=== PATIENT | male | born 1950 | race Caucasian/White ===

== ENCOUNTER 2019-11-04 05:36 | Inpatient (IN) ==
[2019-11-04] MEDS ORDERED: IOPAMIDOL 100 ML BOTTLE IV ONE (05:37)
[2019-11-04] MEDS ORDERED: IPRATROPIUM/ALBUTEROL 3 ML AMPUL.NEB NEB ONE (05:53)
--- NOTE | 2019-11-04 06:37 | Emergency Department Note ---
SOB HPI - General Chief Complaint: Shortness of Breath/Dyspnea Stated Complaint: cont resp infection 2 mo Time Seen by Provider: 11/04/19 06:26 Source: patient Mode of arrival: ambulatory Limitations: no limitations - History of Present Illness This patient has had shortness of breath for last several weeks and has taken 2 courses of an antibiotic for possible pneumonia. He does have a history of pulmonary fibrosis and coronary artery disease. He has had no chest pain. We gave him a breathing treatment before I saw him in the emergency room he said that made him feel little better. He did cough up some phlegm after that. He has not had a chest CT that I can see. No fever chills nausea or vomiting. - Related Data Previous Rx's Medication Instructions Recorded sumatriptan succinate 100 mg tablet 100 mg PO .COMPLEX PRN #9 tab 08/09/18 ropinirole 3 mg tablet 3 mg PO QHS #30 tab 07/18/19 ropinirole 1 mg tablet 1 mg PO TID #90 tab 08/16/19 Allergies Allergy/AdvReac Type Severity Reaction Status Date / Time metoprolol Allergy Unknown Unknown Verified 11/04/19 05:41 Review of Systems All systems ED: reviewed and negative except as stated. Past Medical History - Past Medical History [facility] Narrative: Medical History (Last Reviewed 10/04/19 @ 06:56 by Tee Stanley PA-C) Open fracture of tuft of distal phalanx of finger (Acute) Finger laceration (Acute) Fingernail avulsion, partial (Acute) Chest wall pain (Resolved) Chronic foot ulcer (Chronic) Tobacco abuse (Chronic) Sinusitis, chronic (Chronic) Shortness of breath (Chronic) Restless legs syndrome (Chronic) Obstructive sleep apnea (Chronic) Neuropathy (Chronic) Myocardial infarction, old (Chronic) Migraine (Chronic) Lumbago (Chronic) Joint pain (Chronic) Interstitial pulmonary fibrosis (Chronic) Hyperlipidemia (Chronic) Pure hypercholesterolemia (Chronic) Hernia, inguinal (Chronic) Foot pain (Chronic) Fatigue (Chronic) Dyspnea (Chronic) Coronary artery disease (Chronic) Chronic obstructive pulmonary disease (Chronic) Bronchitis, chronic with acute exacerbation (Chronic) Back pain (Chronic) History of angiography (Resolved) Past Surgical History (Last Reviewed 10/04/19 @ 06:56 by Tee Stanley PA-C) History of angioplasty (Resolved) History of cardiac catheterization (Resolved 04/05/13) History of discectomy (Resolved) History of inguinal hernia repair (Resolved 07/23/14) History of surgery (Resolved) History of vasectomy (Resolved) Family History (Last Reviewed 10/04/19 @ 06:56 by Tee Stanley PA-C) Mother Congestive heart failure Brother Family history of coronary artery disease Essential hypertension Sibling Glaucoma Medical history: Reports: COPD, CAD (coronary artery disease), hyperlipidemia, myocardial infarction, other (restless legs, sleep apnea, interstitial pulmonary fibrosis, inguinal hernia) Surgical history ED: Reports: angioplasty/stent, herniorrhaphy, vasectomy - Social History smoking status: Former smoker Physical Exam Limitations: no limitations General appearance: alert Head: atraumatic Eye: Present: normal appearance ENT: Present: normal exam Neck: Present: normal inspection Chest: Present: normal inspection Respiratory: Present: decreased breath sounds Cardiovascular: Present: regular rate, normal rhythm, normal heart sounds Abdominal: Present: soft. Absent: distention, tenderness Neurological: Present: alert Psychiatric: Present: normal affect Skin: Present: warm, dry Course Vital Signs Temperature 97.7 F 11/04/19 05:37 Pulse Rate 71 11/04/19 05:37 Respiratory Rate 20 11/04/19 05:37 Blood Pressure 160/88 11/04/19 05:37 Pulse Oximetry (%) 95 11/04/19 05:37 Temperature 97.7 F 11/04/19 05:37 Pulse Rate 82 11/04/19 08:01 Respiratory Rate 14 11/04/19 08:01 Blood Pressure 124/80 11/04/19 08:01 Pulse Oximetry (%) 88 L 11/04/19 08:01 Shortness of Breath/Dyspnea - [facility] Narrative Medical decision making narrative: This patient's chest x-ray according the radiologist as showing a progressive pneumonia especially in the left side over the last month. The patient also has interstitial fibrosis chronically. His blood gas showed a PO2 of 53 on room air and a PCO2 in the 30s. He will need to be admitted for his hypoxia. His d- dimer came back elevated at 2.4 so we will go ahead and do a CT angiogram of his chest as well. Plan is to admit him to Dr. Gamez's service. Dr. Gamez did accept him for admission - Lab Data Lab results reviewed: Yes I reviewed the patient's lab results. Result diagrams: 11/04/19 06:43 11/04/19 06:43 Lab Results 11/04/19 11/04/19 11/04/19 Range/Units 06:43 06:43 06:43 WBC 11.7 H (4.50-11.00) K/mcL RBC 4.92 (4.63-6.08) M/mcL Hgb 14.2 (13.7-17.5) g/dL Hct 44.0 (40.1-51.0) % MCV 89.4 (80.0-100.0) fL MCH 28.9 (26.0-34.0) pg MCHC 32.3 (31.0-36.0) g/dL RDW 14.8 H (11.5-14.5) % Plt Count 269 (140-440) K/mcL MPV 8.7 (7.4-10.4) fL Gran % 61.4 (38.0-78.0) % Lymph % (Auto) 28.5 (15.5-49.0) % Grimes % (Auto) 6.1 (1.0-12.0) % Eos % (Auto) 3.1 (0.0-7.0) % Baso % (Auto) 0.9 (0.0-2.0) % Gran # 7.22 (1.80-8.00) K/mcL Lymph # (Auto) 3.34 (1.50-4.80) K/mcL Grimes # (Auto) 0.71 (0.10-0.90) K/mcL Eos # (Auto) 0.36 (0.00-0.70) K/mcL Baso # (Auto) 0.10 (0.00-0.30) K/mcL D-Dimer (0.00-0.40) ug/ml Sodium 139 (133-145) mmol/L Potassium 3.9 (3.3-5.1) mmol/L Chloride 101 (96-108) mmol/L Carbon Dioxide 25 (22-30) mmol/L Anion Gap 13.0 (8-16) BUN 21 (8-23) mg/dl Creatinine 0.9 (0.7-1.2) mg/dl GFR Calculation 87 Glucose 106 H (70-105) mg/dL Calcium 9.1 (8.6-10.4) mg/dl Total Bilirubin 0.6 (0.0-1.0) mg/dL AST 75 H (0-37) U/l ALT 23 (0-40) U/l Alkaline Phosphatase 60 (39-117) U/L Troponin T < 0.01 (0-0.03) ng/ml NT-Pro-B Natriuret Pep 395.4 H (0-125) pg/ml Total Protein 7.2 (5.9-8.4) gm/dL Albumin 4.0 (3.2-5.2) gm/dL Globulin 3.2 (2.2-3.7) gm/dL Albumin/Globulin Ratio 1.3 (1.0-2.3) 11/04/19 Range/Units 06:43 WBC (4.50-11.00) K/mcL RBC (4.63-6.08) M/mcL Hgb (13.7-17.5) g/dL Hct (40.1-51.0) % MCV (80.0-100.0) fL MCH (26.0-34.0) pg MCHC (31.0-36.0) g/dL RDW (11.5-14.5) % Plt Count (140-440) K/mcL MPV (7.4-10.4) fL Gran % (38.0-78.0) % Lymph % (Auto) (15.5-49.0) % Grimes % (Auto) (1.0-12.0) % Eos % (Auto) (0.0-7.0) % Baso % (Auto) (0.0-2.0) % Gran # (1.80-8.00) K/mcL Lymph # (Auto) (1.50-4.80) K/mcL Grimes # (Auto) (0.10-0.90) K/mcL Eos # (Auto) (0.00-0.70) K/mcL Baso # (Auto) (0.00-0.30) K/mcL D-Dimer 2.84 H (0.00-0.40) ug/ml Sodium (133-145) mmol/L Potassium (3.3-5.1) mmol/L Chloride (96-108) mmol/L Carbon Dioxide (22-30) mmol/L Anion Gap (8-16) BUN (8-23) mg/dl Creatinine (0.7-1.2) mg/dl GFR Calculation Glucose (70-105) mg/dL Calcium (8.6-10.4) mg/dl Total Bilirubin (0.0-1.0) mg/dL AST (0-37) U/l ALT (0-40) U/l Alkaline Phosphatase (39-117) U/L Troponin T (0-0.03) ng/ml NT-Pro-B Natriuret Pep (0-125) pg/ml Total Protein (5.9-8.4) gm/dL Albumin (3.2-5.2) gm/dL Globulin (2.2-3.7) gm/dL Albumin/Globulin Ratio (1.0-2.3) - Radiology Data Radiology results reviewed: Yes I reviewed the patient's radiology results. Disposition Pt seen by DRAFTING INSTRUCTOR/PA only: No Clinical Impression: Community acquired pneumonia Disposition: Xfer As Inpt ([facility]) Condition: Good Referrals: Varinder Martini PA-C [Primary Care Provider] - Time of Disposition: 08:59
[2019-11-04 07:23] LABS: Basophils % (Auto) 0.9 % (0.0-2.0); Eosinophils # (Auto) 0.36 K/mcL (0.00-0.70); Eosinophils % (Auto) 3.1 % (0.0-7.0); Granulocytes % (Auto) 61.4 % (38.0-78.0); Hemoglobin 14.2 g/dL (13.7-17.5); Lymphocytes # (Auto) 3.34 K/mcL (1.50-4.80); Lymphocytes % (Auto) 28.5 % (15.5-49.0); Mean Cell Volume 89.4 fL (80.0-100.0); Mean Corpuscular HGB Conc 32.3 g/dL (31.0-36.0); Mean Platelet Volume 8.7 fL (7.4-10.4); Monocytes # (Auto) 0.71 K/mcL (0.10-0.90); Monocytes % (Auto) 6.1 % (1.0-12.0); Platelet Count 269 K/mcL (140-440); RBC 4.92 M/mcL (4.63-6.08); Red Cell Distribution Width 14.8 % (11.5-14.5); WBC 11.7 K/mcL (4.50-11.00)
[2019-11-04 07:51] LABS: proBNP 395.4 pg/ml (0-125)
--- NOTE | 2019-11-04 07:53 | XRay Report ---
HISTORY: Respiratory infection short of breath and former smoker FINDINGS: There is a large consolidating infiltrate throughout the left lung with greatest consolidation around the hilum and above the diaphragm. A mild to moderate infiltrate is present in the central portion right lung. Right upper lobe as hyperlucent, due to underlying emphysema. The infiltrates have become worse since 10/03/19. No pleural effusion is present. Incidentally noted is an azygos lobe in the right side. The heart is partially obscured by the consolidated lung but does not appear to be enlarged. The pulmonary vessels cannot be evaluated. 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 IMPRESSION: Worsening bilateral pneumonia, left worse than right, superimposed upon emphysema Interpreted and Authenticated by: Samuel Torres 11/04/19
[2019-11-04 07:58] LABS: ALT/SGPT 23 U/l (0-40); AST/SGOT 75 U/l (0-37); Albumin/Globulin Ratio 1.3 (1.0-2.3); Alkaline Phosphatase 60 U/L (39-117); Bilirubin,Total 0.6 mg/dL (0.0-1.0); Blood Urea Nitrogen 21 mg/dl (8-23); Calcium 9.1 mg/dl (8.6-10.4); Carbon Dioxide 25 mmol/L (22-30); Chloride 101 mmol/L (96-108); Globulin 3.2 gm/dL (2.2-3.7); Glomerular Filtration Rate 87; Glucose 106 mg/dL (70-105)
[2019-11-04] MEDS ORDERED: cefTRIAXone 1 GM VIAL IV ONE (08:43)
[2019-11-04] MEDS ORDERED: LEVOFLOXACIN 750 MG/150 ML BAG IV ONE (08:43)
--- NOTE | 2019-11-04 09:33 | Internal Med History&Physical ---
Medical - H&P: HPI Patient information: Note initiated : 11/04/19 at 9:30 am Service Date, if different from initiated Date: [] Patient: Alvarado Min 69 y/o M admitted on for Cont Resp Infection 2 Mo. Chief Complaint: [] Chief complaint: Shortness of breath, cough History of present illness: Mr. Min is a 69 year old M with a history of CAD/pulmonary fibrosis who presents to the ER with 3 days onset of worsening progressive shortness of breath along with increasing Grayson sputum. He denies sick contacts, he denies taking recent flu or pneumonia vaccine. He denies recent hospitalization. Symptoms associated with increasing chest discomfort during coughing episodes and also progressive weakness malaise lethargy wherein he has not been able to function. He lives with his in the [place]. He denies any other associated symptom including diarrhea, dysuria, joint pain, rash, headache, photophobia or myalgias. He further denies sore throat or sinus symptoms. Initial work-up in the ER was consistent with bilateral pneumonia left worse than right along with associated emphysematous changes on CT chest. White count 11.7, AST 75. EKG no acute ST changes sinus rhythm. Patient started on antibiotic coverage and subsequently hospitalist service was consulted. At the time evaluation patient is alert and oriented. He was able to answer most the question endorse history as above. He denies change in medications, shaking chills, drenching sweats or weight loss. Review of systems A 10 point review system was performed and is negative except for ones cussed above Medical - H&P: PMH Medical history: Open fracture of tuft of distal phalanx of finger (Acute) Finger laceration (Acute) Fingernail avulsion, partial (Acute) Chest wall pain (Resolved) Chronic foot ulcer (Chronic) (04/10/2014) Dr. César Weiner; Toe Tobacco abuse (Chronic) Sinusitis, chronic (Chronic) Shortness of breath (Chronic) Restless legs syndrome (Chronic) Obstructive sleep apnea (Chronic) Neuropathy (Chronic) (04/10/2014) Dr. César Weiner Myocardial infarction, old (Chronic) 10/2011 Migraine (Chronic) Lumbago (Chronic) Joint pain (Chronic) Interstitial pulmonary fibrosis (Chronic) Hyperlipidemia (Chronic) Pure hypercholesterolemia (Chronic) Hernia, inguinal (Chronic) (06/27/2014) Dr. Uriarte Foot pain (Chronic) Fatigue (Chronic) Dyspnea (Chronic) Coronary artery disease (Chronic) Chronic obstructive pulmonary disease (Chronic) Bronchitis, chronic with acute exacerbation (Chronic) Back pain (Chronic) History of angiography (Resolved) x's 2 Surgical History History of angioplasty (Resolved) Was noted in note from Dr. Carranza, but no dates given. History of cardiac catheterization (Resolved 04/05/13) History of discectomy (Resolved) 02/15 Intimal dissection noted in a 360 degree loop near a trifurcation side of the distal vessel History of inguinal hernia repair (Resolved 07/23/14) History of surgery (Resolved) 02/2012 Stent Placement History of vasectomy (Resolved) Family History Mother Congestive heart failure Brother Family history of coronary artery disease Essential hypertension Sibling Glaucoma Social History adopted: No caregiver/support person: No foster care: No household members: spouse housing: house lives independently: Yes marital status: education level: high school service: Yes service: retired branch: [employer] chcf: No occupational status: retired occupation: Works at [employer] in [employer] pets and animals: Yes (Pets in the house that are not his) pets and animals: cat(s), dog(s), turtle(s), other hx recent travel: No sexually active: No other: 3 children well-balanced diet: about half the time physical activity: none smoking status: Former smoker quit date: 08/14/11 alcohol intake frequency: does not drink substance use type: does not use cade/bahai: Worship special cade needs: No seatbelt use: always victim of physical abuse: No victim of emotional abuse: No victim of sexual abuse: No Medical - H&P: Meds Home Medications Medication Instructions Recorded Confirmed Type sumatriptan succinate 100 mg tablet 100 mg PO .COMPLEX PRN #9 tab 08/09/1811/03 Rx ropinirole 3 mg tablet 3 mg PO QHS #30 tab 07/18/19 11/04/19 Rx ropinirole 1 mg tablet 1 mg PO TID #90 tab 08/16/19 11/04/19 Rx Allergies Allergy/AdvReac Type Severity Reaction Status Date / Time metoprolol Allergy Unknown Unknown Verified 11/04/19 05:41 Medical - H&P: Exam - Constitutional Vitals: Temp Pulse Resp BP Pulse Ox 97.7 F 88 17 127/71 93 11/04/19 05:37 11/04/19 08:48 11/04/19 08:48 11/04/19 08:48 11/04/19 08:48 General appearance: no acute distress, obese Exam: Head normocephalic Oral cavity dry Eye movement symmetrical No ear nose discharge Neck supple no lymphadenopathy S1-S2 regular rhythm no murmur Bilateral basilar crackles/diminished breath sounds bases Abdomen soft nontender nondistended Lower extremity no cyanosis clubbing no joint swelling Skin no suspicious lesion Psych alert cooperative Neuro nonfocal Medical - H&P: Reslt - Labs CBC & Chem 7: 11/04/19 06:43 11/04/19 06:43 Labs: Short CBC 11/04/19 Range/Units 06:43 WBC 11.7 H (4.50-11.00) K/mcL Hgb 14.2 (13.7-17.5) g/dL Hct 44.0 (40.1-51.0) % Plt Count 269 (140-440) K/mcL BMP 11/04/19 06:43 Sodium 139 Potassium 3.9 Chloride 101 Carbon Dioxide 25 BUN 21 Creatinine 0.9 Glucose 106 H Calcium 9.1 Cardiac Enzymes 11/04/19 Range/Units 06:43 Troponin T < 0.01 (0-0.03) ng/ml Liver Function 11/04/19 Range/Units 06:43 Total Bilirubin 0.6 (0.0-1.0) mg/dL AST 75 H (0-37) U/l ALT 23 (0-40) U/l Alkaline Phosphatase 60 (39-117) U/L Albumin 4.0 (3.2-5.2) gm/dL Medical - H&P: A/P (1) Community acquired pneumonia Current visit: Yes Status: Acute * Bilateral pneumonia community-acquired versus aspiration. Continue antibiotic coverage. Sputum cultures/pulmonary toilet/aspiration precautions * Acute COPD exacerbation-continue steroids/bronchodilators/breathing treatments * Sepsis secondary to bilateral pneumonia-continue management guidelines * Hypoxic respiratory failure secondary to underlying COPD/bilateral pneumonia- continue pulmonary toilet/supplemental oxygen * History of migraine use as needed sumatriptan * History of CAD. Stable * Prophylax Heparin Plan * Antibiotic coverage * Inpatient admission in light of PSI score over 100 * Bronchodilators/steroids * PT OT nutrition support * Discharge planning
--- NOTE | 2019-11-04 09:44 | Cat Scan Report ---
History: Chronic respiratory infection for two months, pulmonary infiltrate, elevated serum d-dimer, emphysema TECHNIQUE: The chest was imaged following injection of intravenous contrast scanning during the pulmonary arterial phase. Sagittal, coronal and axial MIPS images were created. The radiation exposure was limited using dose reduction technology. FINDINGS: Patient has moderate centrilobular emphysema throughout both lungs with the greatest involvement in the upper lobes. The emphysema was documented on a prior chest CT done on 10/17/11 and there is been relatively little progression of the emphysema. Superimposed upon emphysema patient has moderate diffuse alveolar infiltrates affecting the left lung greater than right. The greatest involvement is in the lingula and left lower lobe with milder involvement in the left upper lobe and right lower lobe. There is a focal area of masslike consolidation of lung parenchyma in the posterior basal segment of the left lower lobe which measures 3.3 x 4.3 x 4.9 cm.. Patient has numerous large bulky lymph nodes in the mediastinum and both michelle. The largest is a conglomeration of lymph nodes in the subcarinal space which measures 3.7 x 5.1 x 7.2 cm. There is concentric narrowing of the left lower lobe bronchus but no endobronchial lesion is seen. At the aortopulmonary window the largest lymph node is 3.2 x 3.5 cm. In the pretracheal retrocaval space largest lymph node is 2.7 x 3.2 cm. No abnormally enlarged lymph nodes are present in the right hilum. Left hilar lymph nodes measure up to 2 cm. The pulmonary arteries are normal without evidence of pulmonary emboli. The heart is normal in size and contour. There are multiple calcified plaques in the coronary arteries. Aorta is normal in caliber and has mild plaque formation. No ascites is present. A 7 x 8 mm subpleural nodule is present anteriorly in the superior segment of lingula. The pulmonary nodules and lymphadenopathy were not present in 2012. IMPRESSION: Moderate pneumonia superimposed upon underlying moderate emphysema Masslike consolidation in the posterior basal segment left lower lobe which could be a neoplasm or focal area of more densely consolidated lung parenchyma related to pneumonia Nonspecific 7 x 8 mm subpleural nodule in the superior segment lingula Numerous large bulky lymph nodes in the mediastinum and left hilum which are highly suggestive of neoplasm. No evidence of pulmonary emboli Dr. Davenport was called with the results Interpreted and Authenticated by: Samuel Torres 11/04/19
[2019-11-04] MEDS ORDERED: guaiFENesin/CODEINE 10 ML UDC PO PRN (09:48)
[2019-11-04] MEDS ORDERED: MAGNESIUM SULFATE 2 GM/50 ML BAG IV PRN (09:48)
[2019-11-04] MEDS ORDERED: ACETAMINOPHEN 650 MG/65 ML BOTTLE IV PRN (09:48)
[2019-11-04] MEDS ORDERED: POLYETHYLENE GLYCOL 3350 17 GM PACKET PO PRN (09:48)
[2019-11-04] MEDS ORDERED: ONDANSETRON 4 MG ODT TABLET SL PRN (09:48)
[2019-11-04] MEDS ORDERED: BISACODYL 10 MG SUPP.RECT PR PRN (09:48)
[2019-11-04] MEDS ORDERED: MELATONIN 3 MG TABLET PO PRN (09:48)
[2019-11-04] MEDS ORDERED: ONDANSETRON 4 MG/2 ML VIAL IV PRN (09:48)
[2019-11-04] MEDS ORDERED: POTASSIUM CHLORIDE 20 MEQ PACKET PO PRN (09:48)
[2019-11-04] MEDS ORDERED: SUMATRIPTAN SUCCINATE 100 MG PO PRN (09:48)
[2019-11-04] MEDS: IPRATROPIUM/ALBUTEROL 3 ML AMPUL.NEB NEB SCH ×4 (11:12→22:00)
[2019-11-04] MEDS ORDERED: SUMAtriptan SUCCINATE 50 MG TABLET PO PRN (11:45)
[2019-11-04] MEDS: rOPINIRole 1 MG TABLET PO SCH ×3 (13:09→21:53)
[2019-11-04] MEDS: 0.9 % SODIUM CHLORIDE 10 ML SYRINGE IV SCH ×2 (13:14→21:54)
[2019-11-04] MEDS: methylPREDNISolone SOD SUCC 125 MG/2 ML VIAL IV SCH (21:54)
[2019-11-04] MEDS: HEPARIN 5,000 UNIT/ML VIAL SQ SCH (21:54)
[2019-11-04] MEDS: DOCUSATE SODIUM 100 MG CAPSULE PO SCH (21:55)
[2019-11-04] MEDS: SENNOSIDES/DOCUSATE SODIUM 1 TAB TABLET PO SCH (21:55)
[2019-11-04] MEDS: BUDESONIDE 0.5 MG/2 ML AMPUL.NEB NEB SCH (22:01)
[2019-11-05] MEDS: IPRATROPIUM/ALBUTEROL 3 ML AMPUL.NEB NEB SCH ×6 (03:04→22:04)
[2019-11-05] MEDS: 0.9 % SODIUM CHLORIDE 10 ML SYRINGE IV SCH ×3 (05:28→20:25)
[2019-11-05 07:29] LABS: Hematocrit 43.7 % (40.1-51.0); Hemoglobin 14.4 g/dL (13.7-17.5); Mean Cell Volume 88.6 fL (80.0-100.0); Platelet Count 268 K/mcL (140-440); RBC 4.93 M/mcL (4.63-6.08); Red Cell Distribution Width 14.7 % (11.5-14.5); WBC 7.7 K/mcL (4.50-11.00)
[2019-11-05 07:53] LABS: ALT/SGPT 22 U/l (0-40); AST/SGOT 65 U/l (0-37); Albumin 3.9 gm/dL (3.2-5.2); Albumin/Globulin Ratio 1.1 (1.0-2.3); Alkaline Phosphatase 56 U/L (39-117); Bilirubin,Direct < 0.2 mg/dL (0.0-0.3); Bilirubin,Total 0.4 mg/dL (0.0-1.0); Blood Urea Nitrogen 15 mg/dl (8-23); Calcium 9.1 mg/dl (8.6-10.4); Carbon Dioxide 21 mmol/L (22-30); Chloride 102 mmol/L (96-108); Globulin 3.5 gm/dL (2.2-3.7); Glomerular Filtration Rate 91; Glucose 192 mg/dL (70-105); Phosphorous 2.8 mg/dL (2.7-4.5); Triglycerides 56 mg/dl (<150); Uric Acid 5.3 mg/dL (2.5-8.0)
[2019-11-05 07:56] LABS: Lactate Dehydrogenase 893 U/L (94-250)
[2019-11-05] MEDS: BUDESONIDE 0.5 MG/2 ML AMPUL.NEB NEB SCH ×2 (08:09→19:09)
[2019-11-05] MEDS: rOPINIRole 1 MG TABLET PO SCH ×4 (09:20→20:24)
[2019-11-05] MEDS: MULTIVIT,THER IRON,CA,FA & MIN 1 TABLET PO SCH (09:21)
[2019-11-05] MEDS: DOCUSATE SODIUM 100 MG CAPSULE PO SCH ×2 (09:21→20:24)
[2019-11-05] MEDS: HEPARIN 5,000 UNIT/ML VIAL SQ SCH ×2 (09:21→20:24)
[2019-11-05] MEDS: THIAMINE 100 MG TABLET PO SCH (09:21)
[2019-11-05] MEDS: methylPREDNISolone SOD SUCC 125 MG/2 ML VIAL IV SCH ×2 (09:22→20:20)
[2019-11-05 10:58] LABS: Anisocytosis FEW (NONE SEEN); Band Neutrophils % 5 % (0-10); Lymphocytes % 7 % (15-49); Platelet Estimate NORMAL (NORMAL); RBC Morphology ABNORMAL (NORMAL); Segmented Neutrophils % 88 % (38-78)
--- NOTE | 2019-11-05 11:30 | Internal Med Progress Note ---
Medical - PN: Subj Patient information: Note initiated : 11/05/19 at 11:25 am Service Date, if different from initiated Date: [] Patient: Alvarado iMn a 69 y/o M admitted on 11/04/19 for Cont Resp Infection 2 Mo. Chief Complaint: [] Interval history: Mr. Min is a 69 year old M with a history of CAD/pulmonary fibrosis who presents to the ER with 3 days onset of worsening progressive shortness of breath along with increasing Grayson sputum. He denies sick contacts, he denies taking recent flu or pneumonia vaccine. He denies recent hospitalization. Symptoms associated with increasing chest discomfort during coughing episodes and also progressive weakness malaise lethargy wherein he has not been able to function. He lives with his in the [place]. He denies any other associated symptom including diarrhea, dysuria, joint pain, rash, headache, photophobia or myalgias. He further denies sore throat or sinus symptoms. Initial work-up in the ER was consistent with bilateral pneumonia left worse than right along with associated emphysematous changes on CT chest. White count 11.7, AST 75. EKG no acute ST changes sinus rhythm. Patient started on antibiotic coverage and subsequently hospitalist service was consulted. At the time evaluation patient is alert and oriented. He was able to answer most the question endorse history as above. He denies change in medications, shaking chills, drenching sweats or weight loss. 11/04-patient doing well. No overnight events. No concerns per staff. No fever chills. Doing well. No anxiety. Continues oxygen. Able to talk in full sentences. White count down from 11.7-7.7. Continue PT OT - Constitutional Vitals: Vital Signs Temp Pulse Resp BP Pulse Ox 98.6 F 90 18 124/70 92 11/05/19 09:00 11/05/19 11:10 11/05/19 11:10 11/05/19 09:00 11/05/19 09:00 Period Temp Pulse Resp BP Sys/Smith Pulse Ox Last 24 Hr 97.4 F-98.6 F 52-90 18-22 121-136/68-83 90-93 Intake and Output 11/04/19 11/05/19 11/05/19 21:59 05:59 13:59 Intake Total 640 250 720 Output Total 300 700 Balance 340 -450 720 Weight 248 lb 4.8 oz Intake & Output: Intake & Output 11/04/19 11/05/19 11/05/19 21:59 05:59 13:59 Intake Total 640 250 720 Output Total 300 700 Balance 340 -450 720 Weight 248 lb 4.8 oz Intake: Oral 640 250 720 Output: Void Amount 300 700 Other: Meal Dinner Breakfast Percent of Meal Consumed 100% 100% Feeding Ability Independent Urine Appearance Clear Urine Color Light Nalini Dark Yellow Urine Odor Strong Normal Stool Size Moderate Stool Color Brown Stool Consistency Soft # Bowel Movements 1 General appearance: no acute distress Exam: Patient doing well No anxiety Nonlabored breathing On 2 L oxygen No lymphedema Medical - PN: Obj Da - Labs CBC & Chem 7: 11/05/19 06:33 11/05/19 06:34 Labs: Abnormal Lab Results 11/05/19 11/05/19 11/04/19 06:34 06:33 06:43 WBC RDW 14.7 H Seg Neutrophils % 88 H Lymphocytes % 7 L Anisocytosis Few A D-Dimer 2.84 H Carbon Dioxide 21 L Glucose 192 H AST 65 H Lactate Dehydrogenase 893 H NT-Pro-B Natriuret Pep 11/04/19 11/04/19 06:43 06:43 WBC 11.7 H RDW 14.8 H Seg Neutrophils % Lymphocytes % Anisocytosis D-Dimer Carbon Dioxide Glucose 106 H AST 75 H Lactate Dehydrogenase NT-Pro-B Natriuret Pep 395.4 H Meds: Medications Acetaminophen (Tylenol) 650 mg PO Q4-6HP PRN; Protocol PRN Reason: Per Pain Protocol/Fever > 101 Albuterol/Ipratropium (Duoneb) 3 ml NEB Q4HRT [facility] Last Admin: 11/05/19 11:04 Dose: 3 ml Documented by: Bisacodyl (Dulcolax) 10 mg AL Q2-3DAYS PRN PRN Reason: Constipation Budesonide (Pulmicort) 0.5 mg NEB Q12 [facility] Last Admin: 11/05/19 08:09 Dose: 0.5 mg Documented by: Docusate Sodium (Colace) 100 mg PO BID [facility] Last Admin: 11/05/19 09:21 Dose: 100 mg Documented by: Guaifenesin/Codeine Phosphate (Robitussin Ac) 10 ml PO Q4HP PRN PRN Reason: Cough Heparin Sodium (Porcine) (Heparin) 5,000 unit SQ Q12 [facility] Last Admin: 11/05/19 09:21 Dose: 5,000 unit Documented by: Acetaminophen (Ofirmev) 650 mg in 65 mls @ 130 mls/hr IV Q6HP PRN; Protocol PRN Reason: Per Pain Protocol/Fever > 101 Magnesium Sulfate (Magnesium Sulfate) 2 gm in 50 mls @ 50 mls/hr IV UD PRN PRN Reason: MG = or < 1.7 Iron Carb/Multivit/Neurosurgery Physician/Folic Acid (Multivitamin W/Minerals) 1 tab PO DAILY [facility] Last Admin: 11/05/19 09:21 Dose: 1 tab Documented by: Melatonin (Melatonin 3mg Tablet) 3 mg PO HSP PRN PRN Reason: Insomnia Methylprednisolone Sodium Succinate (Solu-Medrol) 60 mg IV Q12 [facility] Last Admin: 11/05/19 09:22 Dose: 60 mg Documented by: Ondansetron HCl (Zofran Odt) 4 mg SL Q4-6HP PRN; Protocol PRN Reason: Nausea And Vomiting Ondansetron HCl (Zofran) 4 mg IV Q4-6HP PRN; Protocol PRN Reason: Nausea And Vomiting Pneumococcal Polyvalent Vaccine (Pneumovax 23) 0.5 ml IM .ONCE ONE Stop: 11/06/19 10:01 Polyethylene Glycol (Miralax) 17 gm PO DAILYP PRN PRN Reason: Constipation Potassium Chloride (Klor-Con) 40 meq PO DAILYP PRN PRN Reason: K+ < 3.5 Ropinirole HCl (Requip) 1 mg PO TID@0900,1300,1700 [facility] Last Admin: 11/05/19 09:20 Dose: 1 mg Documented by: Ropinirole HCl (Requip) 3 mg PO QHS [facility] Last Admin: 11/04/19 21:53 Dose: 3 mg Documented by: Senna/Docusate Sodium (Senna Plus Tablet) 1 tab PO HS [facility] Last Admin: 11/04/19 21:55 Dose: Not Given Documented by: Sodium Chloride (Saline Flush) 10 ml IV Q8 [facility] Last Admin: 11/05/19 05:28 Dose: 10 ml Documented by: Sumatriptan Succinate (Imitrex) 100 mg PO UD PRN PRN Reason: MIGRAINES Thiamine HCl (Vitamin B1) 100 mg PO DAILY [facility] Last Admin: 11/05/19 09:21 Dose: 100 mg Documented by: Medical - PN: A/P - Time Spent With Patient Total time spent is greater than 50% in coordination of care (as documented) at patient's floor/unit and/or counseling patient: 25 - 35 minutes (1) Community acquired pneumonia Status: Acute Assessment and plan: * Bilateral pneumonia community-acquired versus aspiration. Clinically i mproving on antibiotic coverage. Await sputum cultures/continue pulmonary toilet/aspiration precautions * Acute COPD exacerbation-clinical improvement noted on steroids/bronchodilators/breathing treatments * Sepsis secondary to bilateral pneumonia-clinically resolved * Hypoxic respiratory failure secondary to underlying COPD/bilateral pneumonia- continue pulmonary toilet/supplemental oxygen * History of migraine use as needed sumatriptan * History of CAD. Stable * Prophylax Heparin Plan * Continue antibiotic coverage * PT OT/RT treatments * Dietary consult * Discharge planning Current Visit: Yes
[2019-11-05] MEDS: ACETAMINOPHEN 325 MG TABLET PO PRN ×2 (13:59→20:22)
[2019-11-05] MEDS: SENNOSIDES/DOCUSATE SODIUM 1 TAB TABLET PO SCH (20:25)
[2019-11-06] MEDS: IPRATROPIUM/ALBUTEROL 3 ML AMPUL.NEB NEB SCH ×6 (03:45→22:13)
[2019-11-06] MEDS: 0.9 % SODIUM CHLORIDE 10 ML SYRINGE IV SCH ×4 (03:48→20:38)
[2019-11-06 07:32] LABS: Hemoglobin 14.2 g/dL (13.7-17.5); Mean Cell Volume 89.6 fL (80.0-100.0); Mean Corpuscular HGB Conc 32.3 g/dL (31.0-36.0); Mean Platelet Volume 9.3 fL (7.4-10.4); Platelet Count 299 K/mcL (140-440); RBC 4.91 M/mcL (4.63-6.08); WBC 12.8 K/mcL (4.50-11.00)
[2019-11-06] MEDS: BUDESONIDE 0.5 MG/2 ML AMPUL.NEB NEB SCH ×2 (07:41→19:16)
[2019-11-06 07:56] LABS: ALT/SGPT 22 U/l (0-40); AST/SGOT 47 U/l (0-37); Albumin/Globulin Ratio 1.3 (1.0-2.3); Alkaline Phosphatase 66 U/L (39-117); Bilirubin,Direct < 0.2 mg/dL (0.0-0.3); Bilirubin,Total 0.2 mg/dL (0.0-1.0); Blood Urea Nitrogen 20 mg/dl (8-23); Calcium 9.2 mg/dl (8.6-10.4); Carbon Dioxide 22 mmol/L (22-30); Chloride 98 mmol/L (96-108); Globulin 3.2 gm/dL (2.2-3.7); Glomerular Filtration Rate 91; Glucose 218 mg/dL (70-105); Triglycerides 118 mg/dl (<150); Uric Acid 4.9 mg/dL (2.5-8.0)
[2019-11-06 07:57] LABS: Lactate Dehydrogenase 793 U/L (94-250); Phosphorous 2.2 mg/dL (2.7-4.5)
[2019-11-06] MEDS: THIAMINE 100 MG TABLET PO SCH (08:14)
[2019-11-06] MEDS: methylPREDNISolone SOD SUCC 125 MG/2 ML VIAL IV SCH ×2 (08:14→20:37)
[2019-11-06] MEDS: MULTIVIT,THER IRON,CA,FA & MIN 1 TABLET PO SCH (08:14)
[2019-11-06] MEDS: DOCUSATE SODIUM 100 MG CAPSULE PO SCH ×2 (08:14→20:38)
[2019-11-06] MEDS: HEPARIN 5,000 UNIT/ML VIAL SQ SCH ×2 (08:14→20:38)
[2019-11-06] MEDS: rOPINIRole 1 MG TABLET PO SCH ×4 (08:14→20:38)
--- NOTE | 2019-11-06 08:37 | XRay Report ---
HISTORY: Respiratory infection, lymphadenopathy FINDINGS: There is a moderately severe diffuse alveolar infiltrates throughout the left lung with the greatest consolidation in the left lung base. There is milder involvement in the right lower lobe. Patient has widening of the mediastinum and enlargement left hilum due to large bulky lymph nodes. Azygos lobe is noted in the right side. No pleural effusion is present. The heart size is normal. 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 Comparison with the prior chest CT done on 11/04/19 shows no change. The mass like lesion in left lower lobe seen on the chest CT is obscured by the superimposed consolidated lung parenchyma. IMPRESSION: Severe pneumonia predominantly involving the left lung Possible tumor versus focal area of more densely consolidated lung parenchyma in the left lower lobe Abnormal lymphadenopathy No change Interpreted and Authenticated by: Samuel Torres 11/06/19
[2019-11-06 08:53] LABS: Anisocytosis OCC (NONE SEEN); Band Neutrophils % 2 % (0-10); Lymphocytes % 8 % (15-49); Platelet Estimate NORMAL (NORMAL); RBC Morphology ABNORM (NORMAL); Segmented Neutrophils % 90 % (38-78)
[2019-11-06] MEDS ORDERED: PNEUMOCOCCAL 23-VAL P-SAC VAC 0.5 ML SYRINGE IM ONE (10:00)
[2019-11-06] MEDS ORDERED: FLU VACC QS2019-20(6MOS UP)/PF 60 MCG/0.5 ML SYRINGE IM ONE (10:00)
--- NOTE | 2019-11-06 11:01 | Internal Med Progress Note ---
Medical - PN: Subj Patient information: Note initiated : 11/06/19 at 10:58 am Service Date, if different from initiated Date: [] Patient: Alvarado Min a 69 y/o M admitted on 11/04/19 for Cont Resp Infection 2 Mo. Chief Complaint: [] Interval history: Mr. Min is a 69 year old M with a history of CAD/pulmonary fibrosis who presents to the ER with 3 days onset of worsening progressive shortness of breath along with increasing Grayson sputum. He denies sick contacts, he denies taking recent flu or pneumonia vaccine. He denies recent hospitalization. Symptoms associated with increasing chest discomfort during coughing episodes and also progressive weakness malaise lethargy wherein he has not been able to function. He lives with his in the [place]. He denies any other associated symptom including diarrhea, dysuria, joint pain, rash, headache, photophobia or myalgias. He further denies sore throat or sinus symptoms. Initial work-up in the ER was consistent with bilateral pneumonia left worse than right along with associated emphysematous changes on CT chest. White count 11.7, AST 75. EKG no acute ST changes sinus rhythm. Patient started on antibiotic coverage and subsequently hospitalist service was consulted. At the time evaluation patient is alert and oriented. He was able to answer most the question endorse history as above. He denies change in medications, shaking chills, drenching sweats or weight loss. 11/04-patient doing well. No overnight events. No concerns per staff. No fever chills. Doing well. No anxiety. Continues oxygen. Able to talk in full sentences. White count down from 11.7-7.7. Continue PT OT 11/05-worsening pneumonia on chest imaging. Patient feels more fatigue/short of breath. Lung mass noted on imaging. Continue antibiotics and escalating to Zosyn. White count 8.8. Discussed plan of care/need for repeat CT in 2 weeks for interval evaluation of lung mass - Constitutional Vitals: Vital Signs Temp Pulse Resp BP Pulse Ox 98.0 F 81 24 H 124/77 91 11/06/19 07:55 11/06/19 07:55 11/06/19 07:55 11/06/19 07:55 11/06/19 07:55 Period Temp Pulse Resp BP Sys/Smith Pulse Ox Last 24 Hr 97.5 F-98.6 F 80-95 16-24 118-144/72-86 90-92 Intake and Output 11/05/19 11/06/19 11/06/19 21:59 05:59 13:59 Intake Total 1330 800 300 Output Total 350 275 Balance 980 525 300 Weight 249 lb 4.8 oz Intake & Output: Intake & Output 11/05/19 11/06/19 11/06/19 21:59 05:59 13:59 Intake Total 1330 800 300 Output Total 350 275 Balance 980 525 300 Weight 249 lb 4.8 oz Intake: Oral 1330 800 300 Output: Void Amount 350 275 Other: Meal Dinner Breakfast Percent of Meal Consumed 100% 100% Feeding Ability Independent Urine Appearance Clear Clear Clear Urine Color Dark Yellow Dark Yellow Dark Yellow Urine Odor Strong Strong Strong General appearance: no acute distress Exam: On 2 L oxygen Anxious Short of breath No lymphedema Medical - PN: Obj Da - Labs CBC & Chem 7: 11/06/19 06:15 11/06/19 06:15 Labs: Abnormal Lab Results 11/06/19 11/06/19 11/05/19 06:15 06:15 06:34 WBC 12.8 H RDW 15.0 H Seg Neutrophils % 90 H Lymphocytes % 8 L RBC Morphology Abnorm A Anisocytosis Occ A D-Dimer Carbon Dioxide 21 L Glucose 218 H 192 H Phosphorus 2.2 L AST 47 H 65 H Lactate Dehydrogenase 793 H 893 H NT-Pro-B Natriuret Pep 11/05/19 11/04/19 11/04/19 06:33 06:43 06:43 WBC RDW 14.7 H Seg Neutrophils % 88 H Lymphocytes % 7 L RBC Morphology Anisocytosis Few A D-Dimer 2.84 H Carbon Dioxide Glucose 106 H Phosphorus AST 75 H Lactate Dehydrogenase NT-Pro-B Natriuret Pep 395.4 H 11/04/19 06:43 WBC 11.7 H RDW 14.8 H Seg Neutrophils % Lymphocytes % RBC Morphology Anisocytosis D-Dimer Carbon Dioxide Glucose Phosphorus AST Lactate Dehydrogenase NT-Pro-B Natriuret Pep Meds: Medications Acetaminophen (Tylenol) 650 mg PO Q4-6HP PRN; Protocol PRN Reason: Per Pain Protocol/Fever > 101 Last Admin: 11/05/19 20:22 Dose: 650 mg Documented by: Albuterol/Ipratropium (Duoneb) 3 ml NEB Q4HRT [facility] Last Admin: 11/06/19 07:41 Dose: 3 ml Documented by: Bisacodyl (Dulcolax) 10 mg ID Q2-3DAYS PRN PRN Reason: Constipation Budesonide (Pulmicort) 0.5 mg NEB Q12 [facility] Last Admin: 11/06/19 07:41 Dose: 0.5 mg Documented by: Docusate Sodium (Colace) 100 mg PO BID [facility] Last Admin: 11/06/19 08:14 Dose: 100 mg Documented by: Guaifenesin/Codeine Phosphate (Robitussin Ac) 10 ml PO Q4HP PRN PRN Reason: Cough Heparin Sodium (Porcine) (Heparin) 5,000 unit SQ Q12 [facility] Last Admin: 11/06/19 08:14 Dose: 5,000 unit Documented by: Acetaminophen (Ofirmev) 650 mg in 65 mls @ 130 mls/hr IV Q6HP PRN; Protocol PRN Reason: Per Pain Protocol/Fever > 101 Magnesium Sulfate (Magnesium Sulfate) 2 gm in 50 mls @ 50 mls/hr IV UD PRN PRN Reason: MG = or < 1.7 Iron Carb/Multivit/[employer]/Folic Acid (Multivitamin W/Minerals) 1 tab PO DAILY [facility] Last Admin: 11/06/19 08:14 Dose: 1 tab Documented by: Melatonin (Melatonin 3mg Tablet) 3 mg PO HSP PRN PRN Reason: Insomnia Last Admin: 11/05/19 20:24 Dose: 3 mg Documented by: Methylprednisolone Sodium Succinate (Solu-Medrol) 60 mg IV Q12 [facility] Last Admin: 11/06/19 08:14 Dose: 60 mg Documented by: Ondansetron HCl (Zofran Odt) 4 mg SL Q4-6HP PRN; Protocol PRN Reason: Nausea And Vomiting Ondansetron HCl (Zofran) 4 mg IV Q4-6HP PRN; Protocol PRN Reason: Nausea And Vomiting Polyethylene Glycol (Miralax) 17 gm PO DAILYP PRN PRN Reason: Constipation Potassium Chloride (Klor-Con) 40 meq PO DAILYP PRN PRN Reason: K+ < 3.5 Ropinirole HCl (Requip) 1 mg PO TID@0900,1300,1700 [facility] Last Admin: 11/06/19 08:14 Dose: 1 mg Documented by: Ropinirole HCl (Requip) 3 mg PO QHS [facility] Last Admin: 11/05/19 20:24 Dose: 3 mg Documented by: Senna/Docusate Sodium (Senna Plus Tablet) 1 tab PO HS [facility] Last Admin: 11/05/19 20:25 Dose: Not Given Documented by: Sodium Chloride (Saline Flush) 10 ml IV Q8 [facility] Last Admin: 11/06/19 05:23 Dose: 10 ml Documented by: Sumatriptan Succinate (Imitrex) 100 mg PO UD PRN PRN Reason: MIGRAINES Thiamine HCl (Vitamin B1) 100 mg PO DAILY [facility] Last Admin: 11/06/19 08:14 Dose: 100 mg Documented by: Medical - PN: A/P - Time Spent With Patient Total time spent is greater than 50% in coordination of care (as documented) at patient's floor/unit and/or counseling patient: 25 - 35 minutes (1) Community acquired pneumonia Status: Acute Assessment and plan: * Bilateral pneumonia more pronounced left upper lobe community-acquired versus aspiration. Clinically deteriorating on interval chest imaging with worsening white count. Escalate antibiotic coverage to cover anaerobes on Zosyn. * Lung mass will require repeat CT in 2 weeksfor interval change * Acute COPD exacerbation-continue steroids/bronchodilators/breathing treatments * Sepsis secondary to bilateral pneumonia-worsening leukocytosis. Continue management guidelines * Hypoxic respiratory failure secondary to underlying COPD/bilateral pneumonia- on 2 L oxygen * History of migraine use as needed sumatriptan * History of CAD. Stable * Prophylax Heparin Plan * Escalate antibiotic coverage * Continue bronchodilators/steroids * CT chest in 2 weeks for lung mass evaluation * PT OT/RT treatments * Nutrition support * Discharge planning Current Visit: Yes
[2019-11-06] MEDS: PIPERACILLIN SODIUM/TAZOBACTAM 3.375 GM in DEXTROSE 5% IN WATER 50 ML IV SCH ×2 (11:26→17:43)
[2019-11-06] MEDS: ACETAMINOPHEN 325 MG TABLET PO PRN (12:40)
[2019-11-06] MEDS: SENNOSIDES/DOCUSATE SODIUM 1 TAB TABLET PO SCH (20:38)
[2019-11-07] MEDS: PIPERACILLIN SODIUM/TAZOBACTAM 3.375 GM in DEXTROSE 5% IN WATER 50 ML IV SCH ×4 (00:35→18:46)
[2019-11-07] MEDS: IPRATROPIUM/ALBUTEROL 3 ML AMPUL.NEB NEB SCH ×3 (02:10→13:10)
[2019-11-07 06:41] LABS: Hematocrit 47.3 % (40.1-51.0); Hemoglobin 15.2 g/dL (13.7-17.5); Mean Cell Volume 89.6 fL (80.0-100.0); Mean Corpuscular HGB Conc 32.1 g/dL (31.0-36.0); Mean Platelet Volume 9.1 fL (7.4-10.4); Platelet Count 316 K/mcL (140-440); RBC 5.28 M/mcL (4.63-6.08); Red Cell Distribution Width 15.1 % (11.5-14.5); WBC 15.3 K/mcL (4.50-11.00)
[2019-11-07] MEDS: 0.9 % SODIUM CHLORIDE 10 ML SYRINGE IV SCH ×3 (06:42→21:07)
[2019-11-07 06:57] LABS: ALT/SGPT 27 U/l (0-40); AST/SGOT 49 U/l (0-37); Albumin 4.1 gm/dL (3.2-5.2); Albumin/Globulin Ratio 1.2 (1.0-2.3); Alkaline Phosphatase 70 U/L (39-117); Bilirubin,Direct < 0.2 mg/dL (0.0-0.3); Bilirubin,Total 0.3 mg/dL (0.0-1.0); Blood Urea Nitrogen 19 mg/dl (8-23); Calcium 9.6 mg/dl (8.6-10.4); Carbon Dioxide 27 mmol/L (22-30); Chloride 96 mmol/L (96-108); Globulin 3.5 gm/dL (2.2-3.7); Glomerular Filtration Rate 91; Glucose 157 mg/dL (70-105); Triglycerides 124 mg/dl (<150); Uric Acid 3.1 mg/dL (2.5-8.0)
[2019-11-07 07:26] LABS: Lactate Dehydrogenase 793 U/L (94-250); Phosphorous 2.3 mg/dL (2.7-4.5)
[2019-11-07] MEDS: BUDESONIDE 0.5 MG/2 ML AMPUL.NEB NEB SCH (09:36)
[2019-11-07 09:47] LABS: Band Neutrophils % 1 % (0-10); Lymphocytes % 4 % (15-49); Monocytes % (Manual) 3 % (1-12); Platelet Estimate NORMAL (NORMAL); RBC Morphology NORMAL (NORMAL); Segmented Neutrophils % 92 % (38-78)
[2019-11-07] MEDS: DOCUSATE SODIUM 100 MG CAPSULE PO SCH ×2 (10:41→21:06)
[2019-11-07] MEDS: rOPINIRole 1 MG TABLET PO SCH ×4 (10:48→21:06)
[2019-11-07] MEDS: THIAMINE 100 MG TABLET PO SCH (10:48)
[2019-11-07] MEDS: HEPARIN 5,000 UNIT/ML VIAL SQ SCH ×2 (10:48→21:07)
[2019-11-07] MEDS: MULTIVIT,THER IRON,CA,FA & MIN 1 TABLET PO SCH (10:48)
[2019-11-07] MEDS: methylPREDNISolone SOD SUCC 125 MG/2 ML VIAL IV SCH ×2 (10:48→21:06)
[2019-11-07] MEDS ORDERED: IPRATROPIUM/ALBUTEROL 3 ML AMPUL.NEB NEB PRN (11:25)
--- NOTE | 2019-11-07 11:53 | Internal Med Progress Note ---
Medical - PN: Subj Patient information: Note initiated : 11/07/19 at 11:51 am Service Date, if different from initiated Date: [] Patient: Alvarado Min a 69 y/o M admitted on 11/04/19 for Cont Resp Infection 2 Mo. Chief Complaint: [] Interval history: Mr. Min is a 69 year old M with a history of CAD/pulmonary fibrosis who presents to the ER with 3 days onset of worsening progressive shortness of breath along with increasing Grayson sputum. He denies sick contacts, he denies taking recent flu or pneumonia vaccine. He denies recent hospitalization. Symptoms associated with increasing chest discomfort during coughing episodes and also progressive weakness malaise lethargy wherein he has not been able to function. [place] He denies any other associated symptom including diarrhea, dysuria, joint pain, rash, headache, photophobia or myalgias. He further denies sore throat or sinus symptoms. Initial work-up in the ER was consistent with bilateral pneumonia left worse than right along with associated emphysematous changes on CT chest. White count 11.7, AST 75. EKG no acute ST changes sinus rhythm. Patient started on antibiotic coverage and subsequently hospitalist service was consulted. At the time evaluation patient is alert and oriented. He was able to answer most the question endorse history as above. He denies change in medications, shaking chills, drenching sweats or weight loss. 11/04-patient doing well. No overnight events. No concerns per staff. No fever chills. Doing well. No anxiety. Continues oxygen. Able to talk in full sentences. White count down from 11.7-7.7. Continue PT OT 11/05-worsening pneumonia on chest imaging. Patient feels more fatigue/short of breath. Lung mass noted on imaging. Continue antibiotics and escalating to Zosyn. White count 8.8. Discussed plan of care/need for repeat CT in 2 weeks for interval evaluation of lung mass 11/06-patient clinically better however worsening leukocytosis. Continues oxygen. On Zosyn due to failure to respond to community-acquired protocol of antibiotics. Await cultures. Continue PT OT/breathing treatments. - Constitutional Vitals: Vital Signs Temp Pulse Resp BP Pulse Ox 98.0 F 70 16 157/96 98 11/07/19 08:00 11/07/19 08:00 11/07/19 08:00 11/07/19 08:00 11/07/19 08:00 Period Temp Pulse Resp BP Sys/Smith Pulse Ox Last 24 Hr 97.4 F-98.2 F 56-104 16-24 119-162/62-96 90-98 Intake and Output 11/06/19 11/07/19 11/07/19 21:59 05:59 13:59 Intake Total 770 475 650 Output Total 1125 825 Balance -355 -350 650 Weight 252 lb 3.2 oz Intake & Output: Intake & Output 11/06/19 11/07/19 11/07/19 21:59 05:59 13:59 Intake Total 770 475 650 Output Total 1125 825 Balance -355 -350 650 Weight 252 lb 3.2 oz Intake: IV 50 50 50 Zosyn 3.375 gm In Dextrose 5% 50 50 50 in Water 50 ml @ 100 mls/hr IV Q6H [facility] Rx#:[id number] Oral 720 425 600 Output: Void Amount 1125 825 Other: Meal Dinner Breakfast Percent of Meal Consumed 100% 100% Feeding Ability Independent Independent Urine Appearance Clear Clear Clear Urine Color Bright Yellow Bright Yellow Bright Yellow Urine Odor Normal Normal Normal Stool Size Moderate Stool Color Brown Stool Consistency Formed # Bowel Movements 1 General appearance: no acute distress Exam: Alert oriented Nonlabored breathing on 2 L oxygen No anxiety Nondistended_Abdomen Medical - PN: Obj Da - Labs CBC & Chem 7: 11/07/19 05:43 11/07/19 05:43 Labs: Abnormal Lab Results 11/07/19 11/07/19 11/06/19 05:43 05:43 06:15 WBC 15.3 H RDW 15.1 H Seg Neutrophils % 92 H Lymphocytes % 4 L RBC Morphology Anisocytosis Carbon Dioxide Glucose 157 H 218 H Phosphorus 2.3 L 2.2 L AST 49 H 47 H Lactate Dehydrogenase 793 H 793 H 11/06/19 11/05/19 11/05/19 06:15 06:34 06:33 WBC 12.8 H RDW 15.0 H 14.7 H Seg Neutrophils % 90 H 88 H Lymphocytes % 8 L 7 L RBC Morphology Abnorm A Anisocytosis Occ A Few A Carbon Dioxide 21 L Glucose 192 H Phosphorus AST 65 H Lactate Dehydrogenase 893 H Meds: Medications Acetaminophen (Tylenol) 650 mg PO Q4-6HP PRN; Protocol PRN Reason: Per Pain Protocol/Fever > 101 Last Admin: 11/06/19 12:40 Dose: 650 mg Documented by: Albuterol/Ipratropium (Duoneb) 3 ml NEB Q6HP PRN PRN Reason: Shortness Of Breath Or Wheezing Bisacodyl (Dulcolax) 10 mg WA Q2-3DAYS PRN PRN Reason: Constipation Docusate Sodium (Colace) 100 mg PO BID [facility] Last Admin: 11/07/19 10:41 Dose: Not Given Documented by: Guaifenesin/Codeine Phosphate (Robitussin Ac) 10 ml PO Q4HP PRN PRN Reason: Cough Heparin Sodium (Porcine) (Heparin) 5,000 unit SQ Q12 [facility] Last Admin: 11/07/19 10:48 Dose: 5,000 unit Documented by: Acetaminophen (Ofirmev) 650 mg in 65 mls @ 130 mls/hr IV Q6HP PRN; Protocol PRN Reason: Per Pain Protocol/Fever > 101 Magnesium Sulfate (Magnesium Sulfate) 2 gm in 50 mls @ 50 mls/hr IV UD PRN PRN Reason: MG = or < 1.7 Piperacillin Sod/Tazobactam (Sod 3.375 gm/ Dextrose) 50 mls @ 100 mls/hr IV Q6H [facility]; Protocol Last Infusion: 11/07/19 06:30 Dose: Infused Documented by: Iron Carb/Multivit/[place]/Folic Acid (Multivitamin W/Minerals) 1 tab PO DAILY [facility] Last Admin: 11/07/19 10:48 Dose: 1 tab Documented by: Melatonin (Melatonin 3mg Tablet) 3 mg PO HSP PRN PRN Reason: Insomnia Last Admin: 11/05/19 20:24 Dose: 3 mg Documented by: Methylprednisolone Sodium Succinate (Solu-Medrol) 60 mg IV Q12 [facility] Last Admin: 11/07/19 10:48 Dose: 60 mg Documented by: Ondansetron HCl (Zofran Odt) 4 mg SL Q4-6HP PRN; Protocol PRN Reason: Nausea And Vomiting Ondansetron HCl (Zofran) 4 mg IV Q4-6HP PRN; Protocol PRN Reason: Nausea And Vomiting Polyethylene Glycol (Miralax) 17 gm PO DAILYP PRN PRN Reason: Constipation Potassium Chloride (Klor-Con) 40 meq PO DAILYP PRN PRN Reason: K+ < 3.5 Ropinirole HCl (Requip) 1 mg PO TID@0900,1300,1700 [facility] Last Admin: 11/07/19 10:48 Dose: 1 mg Documented by: Ropinirole HCl (Requip) 3 mg PO QHS [facility] Last Admin: 11/06/19 20:38 Dose: 3 mg Documented by: Senna/Docusate Sodium (Senna Plus Tablet) 1 tab PO HS [facility] Last Admin: 11/06/19 20:38 Dose: Not Given Documented by: Sodium Chloride (Saline Flush) 10 ml IV Q8 [facility] Last Admin: 11/07/19 06:42 Dose: 10 ml Documented by: Sumatriptan Succinate (Imitrex) 100 mg PO UD PRN PRN Reason: MIGRAINES Last Admin: 11/07/19 02:08 Dose: 100 mg Documented by: Thiamine HCl (Vitamin B1) 100 mg PO DAILY [facility] Last Admin: 11/07/19 10:48 Dose: 100 mg Documented by: Medical - PN: A/P - Time Spent With Patient Total time spent is greater than 50% in coordination of care (as documented) at patient's floor/unit and/or counseling patient: 25 - 35 minutes (1) Community acquired pneumonia Status: Acute Assessment and plan: * Bilateral pneumonia worsening on interval imaging. On extended antibiotic c overage to include aspiration. * Lung mass -reassess with repeat CT in 2 weeks for interval change * Acute COPD exacerbation-continue steroids/bronchodilators/breathing treatments * Sepsis secondary to bilateral pneumonia-worsening leukocytosis. Continue management guidelines * Hypoxic respiratory failure secondary to underlying COPD/bilateral pneumonia- on 2 L oxygen * History of migraine use as needed sumatriptan * History of CAD. Stable * Prophylax Heparin Plan * Continue antibiotic coverage * Continue bronchodilators/steroids * CT chest in 2 weeks for lung mass evaluation * PT OT/RT treatments * Nutrition support * Discharge planning Current Visit: Yes
[2019-11-07] MEDS: SENNOSIDES/DOCUSATE SODIUM 1 TAB TABLET PO SCH (21:06)
[2019-11-08] MEDS: PIPERACILLIN SODIUM/TAZOBACTAM 3.375 GM in DEXTROSE 5% IN WATER 50 ML IV SCH ×3 (00:03→11:23)
[2019-11-08] MEDS: 0.9 % SODIUM CHLORIDE 10 ML SYRINGE IV SCH ×3 (00:05→13:08)
[2019-11-08 07:35] LABS: Hematocrit 48.4 % (40.1-51.0); Hemoglobin 15.2 g/dL (13.7-17.5); Mean Cell Volume 90.5 fL (80.0-100.0); Mean Corpuscular HGB Conc 31.4 g/dL (31.0-36.0); Mean Platelet Volume 9.1 fL (7.4-10.4); Platelet Count 326 K/mcL (140-440); RBC 5.35 M/mcL (4.63-6.08); Red Cell Distribution Width 15.2 % (11.5-14.5); WBC 12.4 K/mcL (4.50-11.00)
[2019-11-08 07:44] LABS: ALT/SGPT 30 U/l (0-40); AST/SGOT 49 U/l (0-37); Albumin/Globulin Ratio 1.2 (1.0-2.3); Alkaline Phosphatase 72 U/L (39-117); Bilirubin,Direct < 0.2 mg/dL (0.0-0.3); Bilirubin,Total 0.5 mg/dL (0.0-1.0); Blood Urea Nitrogen 21 mg/dl (8-23); Carbon Dioxide 30 mmol/L (22-30); Chloride 97 mmol/L (96-108); Globulin 3.4 gm/dL (2.2-3.7); Glomerular Filtration Rate 91; Glucose 145 mg/dL (70-105); Lactate Dehydrogenase 769 U/L (94-250); Phosphorous 2.7 mg/dL (2.7-4.5); Triglycerides 147 mg/dl (<150); Uric Acid 2.5 mg/dL (2.5-8.0)
[2019-11-08] MEDS: DOCUSATE SODIUM 100 MG CAPSULE PO SCH (08:07)
[2019-11-08 08:59] LABS: Band Neutrophils % 1 % (0-10); Lymphocytes % 9 % (15-49); Monocytes % (Manual) 4 % (1-12); Platelet Estimate NORMAL (NORMAL); RBC Morphology NORMAL (NORMAL); Segmented Neutrophils % 86 % (38-78)
[2019-11-08] MEDS: rOPINIRole 1 MG TABLET PO SCH ×2 (10:00→13:08)
[2019-11-08] MEDS: THIAMINE 100 MG TABLET PO SCH (10:00)
[2019-11-08] MEDS: methylPREDNISolone SOD SUCC 125 MG/2 ML VIAL IV SCH (10:00)
[2019-11-08] MEDS: HEPARIN 5,000 UNIT/ML VIAL SQ SCH (10:00)
[2019-11-08] MEDS: MULTIVIT,THER IRON,CA,FA & MIN 1 TABLET PO SCH (10:01)
--- NOTE | 2019-11-08 10:03 | Discharge Summary ---
Medical - DS: Prov Patient information: Note initiated : 11/08/19 at 10:01 am Service Date, if different from initiated Date: [] Patient: Alvarado Min 69 y/o M admitted on 11/04/19 for Cont Resp Infection 2 Mo. Chief Complaint: [] Date of admission: 11/04/19 09:47 Discharge date: 11/08/19 Primary care physician: Varinder Martini Consults: 11/05/19 07:41 Consult to Physician [CONS] Routine Comment: Consulting Provider: Tonio Soliman Reason For Exam: Physician to Consult Medical - DS: Meds - Discharge Medications Prescriptions: Amoxicillin/Potassium Clav [Augmentin] 875 mg PO Q12H #10 tab Transmission Status: Pending to [facility] predniSONE [Deltasone] 40 mg PO DAILY #10 tab Transmission Status: Pending to [facility] Levofloxacin [Levaquin] 750 mg PO DAILY #5 tab Transmission Status: Pending to [facility] Active and Home Medications: Home Medications sumatriptan succinate 100 mg tablet 100 mg PO .COMPLEX PRN #9 tab 08/09/18 [Rx Confirmed 11/04/19 Last Taken 10/21/19] ropinirole 3 mg tablet 3 mg PO QHS #30 tab 07/18/19 [Rx Confirmed 11/04/19 Last Taken 11/03/19 21:00] ropinirole 1 mg tablet 1 mg PO TID #90 tab 08/16/19 [Rx Confirmed 11/04/19 Last Taken 11/04/19 07:30] Amoxicillin/Potassium Clav [Augmentin] 875 mg PO Q12H #10 tab 11/08/19 [Rx Last Taken Unknown] Levofloxacin [Levaquin] 750 mg PO DAILY #5 tab 11/08/19 [Rx Last Taken Unknown] predniSONE [Deltasone] 40 mg PO DAILY #10 tab 11/08/19 [Rx Last Taken Unknown] Medical - DS: Hosp Hospital Course: Discharge diagnosis * Bilateral pneumonia -clinically improving. Continue additional 5 days antibiotics * Hypoxic respiratory failure clinically improving. Continue steroids/home oxygen. RT to evaluate for home oxygen prior to discharge * Lung mass -reassess with repeat CT in 2 weeks for interval change. PCP to coordinate * Acute COPD exacerbation-clinical improvement noted with steroids/br onchodilators and breathing treatments * Sepsis secondary to bilateral pneumonia-Improved leukocytosis. Stable hemodynamics * Hypoxic respiratory failure secondary to underlying COPD/bilateral pneumonia- on 2 L oxygen * History of migraine use as needed sumatriptan * History of CAD. Continue home meds Brief hospital course Mr. Min is a 69 year old M with a history of CAD/pulmonary fibrosis who presents to the ER with 3 days onset of worsening progressive shortness of breath along with increasing [place] sputum. He denies sick contacts, he denies taking recent flu or pneumonia vaccine. He denies recent hospitalization. Symptoms associated with increasing chest discomfort during coughing episodes and also progressive weakness malaise lethargy wherein he has not been able to function. He lives with his in the [place]. He denies any other associated symptom including diarrhea, dysuria, joint pain, rash, headache, photophobia or myalgias. He further denies sore throat or sinus symptoms. Initial work-up in the ER was consistent with bilateral pneumonia left worse than right along with associated emphysematous changes on CT chest. White count 11.7, AST 75. EKG no acute ST changes sinus rhythm. Patient started on antibiotic coverage and subsequently hospitalist service was consulted. At the time evaluation patient is alert and oriented. He was able to answer most the question endorse history as above. He denies change in medications, shaking chills, drenching sweats or weight loss. 11/04-patient doing well. No overnight events. No concerns per staff. No fever chills. Doing well. No anxiety. Continues oxygen. Able to talk in full sentences. White count down from 11.7-7.7. Continue PT OT 11/05-worsening pneumonia on chest imaging. Patient feels more fatigue/short of breath. Lung mass noted on imaging. Continue antibiotics and escalating to Zosyn. White count 8.8. Discussed plan of care/need for repeat CT in 2 weeks for interval evaluation of lung mass 11/06-patient clinically better however worsening leukocytosis. Continues oxygen. On Zosyn due to failure to respond to community-acquired protocol of antibiotics. Await cultures. Continue PT OT/breathing treatments. 11/07-patient doing well. Discharging advised to continue home oxygen/additional 5 days antibiotics. Continue prednisone for additional 5 days. Follow-up with primary care physician in 5 to 7 days. Patient will need repeat CT scan of the chest for interval evaluation of lung mass. CT findings were discussed with patient and a copy provided. Discharge diagnosis: . - Time Spent with Patient Total time spent providing and/or coordinating discharge services: Greater than 30 minutes Medical - DS: Exam - Constitutional Vitals: Vital Signs Temp Pulse Resp BP BP Pulse Ox 11/08/19 08:00 97.3 F 18 154/98 94 11/08/19 06:33 20 90 11/08/19 04:00 97.5 F 74 20 157/94 90 11/08/19 00:00 99.2 F H 81 18 142/83 93 11/07/19 20:00 98.3 F 96 H 20 145/81 91 11/07/19 16:00 98.1 F 88 18 148/89 92 11/07/19 13:45 86 20 91 11/07/19 12:00 97.8 F 83 16 138/87 91 Intake and Output 11/07/19 11/08/19 11/08/19 21:59 05:59 13:59 Intake Total 1230 50 50 Output Total 1450 550 Balance -220 -500 50 Intake: IV 50 50 50 Zosyn 3.375 gm In Dextrose 5% 50 50 50 in Water 50 ml @ 100 mls/hr IV Q6H [facility] Rx#:[id number] Oral 1180 0 Output: Void Amount 1450 550 Other: Meal Dinner Percent of Meal Consumed 90% Feeding Ability Independent Urine Appearance Clear Clear Clear Urine Color Dark Yellow Dark Yellow Dark Yellow Urine Odor Normal Normal Stool Size Moderate Stool Color Brown Stool Consistency Soft Formed # Voids 1 Weight 253 lb 14.4 oz Medical - DS: Data Labs on day of discharge: Labs from last 24 hours 11/08/19 11/08/19 05:28 05:28 WBC 12.4 H RBC 5.35 Hgb 15.2 Hct 48.4 MCV 90.5 MCH 28.4 MCHC 31.4 RDW 15.2 H Plt Count 326 MPV 9.1 Total Counted 100 Seg Neutrophils % 86 H Band Neutrophils % 1 Lymphocytes % 9 L Monocytes % (Manual) 4 Platelet Estimate Normal RBC Morphology Normal Sodium 137 Potassium 4.2 Chloride 97 Carbon Dioxide 30 Anion Gap 10.0 BUN 21 Creatinine 0.8 GFR Calculation 91 Glucose 145 H Uric Acid 2.5 Calcium 9.0 Phosphorus 2.7 Magnesium 2.2 Total Bilirubin 0.5 Direct Bilirubin < 0.2 GGT 30 AST 49 H ALT 30 Alkaline Phosphatase 72 Lactate Dehydrogenase 769 H Total Protein 7.4 Albumin 4.0 Globulin 3.4 Albumin/Globulin Ratio 1.2 Triglycerides 147 Medical - DS: A/P - Patient/Caregiver Discharge Instructions Activity: increase activity as tolerated Diet: Regular Diet Additional Instructions: Follow-up PCP in [address] in 2 weeks for interval evaluation of chest mass I recommend primary care physician to check CBC BMP UA and CT chest as a posthospital follow-up in 2 weeks Antibiotics for additional 5 days oxygen @as determined by RT during bedside evaluation Oral steroids for additional 5 days All meals on chair sitting upright at 90 degrees to prevent aspiration Return to ER if worsening fever chills shortness of breath, diarrhea, bleeding Review risk and side effect profile of medications including antibiotics. Side effect may include mild to severe reaction including rash, diarrhea, cdiff and even which can be prevented by close follow-up with PCP and monitoring for side effects Continue diet and activity as advised Discussed importance of medication adherence Please review medication list with patient prior to discharge Please schedule follow-up with PCP/Providers prior to discharge and provide printouts Prescriptions: Amoxicillin/Potassium Clav [Augmentin] 875 mg PO Q12H #10 tab Transmission Status: Pending to [facility] predniSONE [Deltasone] 40 mg PO DAILY #10 tab Transmission Status: Pending to [facility] Levofloxacin [Levaquin] 750 mg PO DAILY #5 tab Transmission Status: Pending to [facility] - Problem Maintenance (1) Community acquired pneumonia Status: Acute - Follow up Plan Follow up with: Kevin Quinteros DPM [Physician] - (Follow up with podiatry within 7-10 days for toenail care) Varinder Martini PA-C [Primary Care Provider] - Disposition: Home, Self-Care Prognosis: Good Rehab Potential: Fair I certify that the patient requires SNF services: No Overall status at discharge: patient is progressing back to baseline
== END 2019-11-08 14:00 | disposition home or self-care (01) | DRG 871 ==
LOC: ED 05:36 → MEDSUR 09:47
PROVIDERS: ADMIT Internal Medicine; ATTEND Internal Medicine